=== PATIENT | female | born 1950 | race Caucasian/White ===

== ENCOUNTER 2020-02-28 15:38 | Observation (INO) ==
[2020-02-28 16:26] LABS: Basophils % 0.2 %; Eosinophils % 0.2 %; Hematocrit 36.4 % (35.3-44.9); Hemoglobin 12.3 g/dL (11.5-15.4); Immature Granulocytes % 0.5 % (0-4); Lymphocytes # 0.5 K/mcL (0.6-4.6); Lymphocytes % 12.7 %; Mean Corpuscular HGB Conc 33.8 g/dL (31.6-35.5); Mean Corpuscular Volume 94.8 fL (83.0-100.0); Mean Platelet Volume 9.5 fL (9.4-12.4); Monocytes # 0.2 K/mcL (0.0-1.3); Monocytes % 5.7 %; Neutrophils # 3.2 K/mcL (1.6-8.9); Platelet Count 234 K/mcL (140-400); Red Blood Count 3.84 M/mcL (3.82-4.97); Red Cell Distribution Width 11.7 % (11.5-14.5); Segmented Neutrophils % 80.7 %
[2020-02-28 16:43] LABS: Bilirubin,Urine Negative (Negative); Blood,Urine Negative (Negative); Clarity,Urine Cloudy (Clear); Color,Urine Yellow (Yellow); Glucose,Urine (UA) Normal (Normal); Ketones,Urine Negative (Negative); Leukocyte Esterase,Urine Negative (Negative); Nitrite,Urine Negative (Negative); PH,Urine 7.5 pH Units (5.0-8.0); Protein,Urine 30 mg/dL (Neg-Trace); Specific Gravity,Urine 1.019 (1.010-1.025); Urobilinogen,Urine Normal (Normal)
[2020-02-28 16:45] LABS: Bacteria,Urine Few per hpf (None-Few); Hyaline Casts,Urine None Seen per lpf (None-Few); RBC,Urine 0-3 per hpf (0-3); Squamous Epithelial Cell,Urine Few per lpf (None-Few); WBC,Urine 0-3 per hpf (0-3)
[2020-02-28] MEDS ORDERED: 0.9 % Sodium Chloride 500 ML IVC ONE ×2 (16:54→17:30)
[2020-02-28 16:57] LABS: Alanine Aminotransferase 21 Units/L (7-52); Albumin 4.4 g/dL (3.5-5.7); Albumin/Globulin Ratio 1.4 (1.1-2.2); Alkaline Phosphatase 95 Units/L (34-104); Aspartate Amino Transferase 26 Units/L (13-39); BUN/Creatinine Ratio 28 (6-26); Bilirubin,Direct 0.1 mg/dL (0.0-0.2); Bilirubin,Indirect 0.3 mg/dL (0.0-1.0); Bilirubin,Total 0.4 mg/dL (0.3-1.0); Blood Urea Nitrogen 17 mg/dL (8-23); Calcium 9.3 mg/dL (8.6-10.3); Carbon Dioxide 30 mEq/L (23-29); Chloride 88 mEq/L (98-107); Globulin 3.2 g/dL (2.4-3.5); Glucose 137 mg/dL (70-105); Osmolality,Calculated 266 (280-300); Potassium 4.4 mEq/L (3.5-5.1); Sodium 126 mEq/L (136-145); Total Protein 7.6 g/dL (6.4-8.9); Troponin I < 0.03 ng/mL (< 0.04); eGFR For African Americans > 60 (> 60); eGFR For Non-African Americans > 60 (> 60)
[2020-02-28] MEDS ORDERED: 0.9 % Sodium Chloride 1,000 ML ONE (17:13)
[2020-02-28] MEDS ORDERED: Naloxone 0.4 MG/ML INJ IVP PRN (20:26)
[2020-02-28] MEDS ORDERED: Ondansetron ODT 4 MG TAB.RAPDIS SL PRN (20:31)
[2020-02-28] MEDS ORDERED: Acetaminophen 325 MG TABLET PO PRN (20:35)
[2020-02-28] MEDS ORDERED: Albuterol 2.5 MG/3 ML NEBULIZER IH PRN (20:35)
[2020-02-28 22:57] LABS: BUN/Creatinine Ratio 29 (6-26); Blood Urea Nitrogen 15 mg/dL (8-23); Calcium 8.3 mg/dL (8.6-10.3); Carbon Dioxide 29 mEq/L (23-29); Chloride 93 mEq/L (98-107); Glucose 90 mg/dL (70-105); Osmolality,Calculated 264 (280-300); Potassium 4.2 mEq/L (3.5-5.1); Sodium 127 mEq/L (136-145); eGFR For African Americans > 60 (> 60); eGFR For Non-African Americans > 60 (> 60)
[2020-02-29 03:49] LABS: Basophils % 0.5 %; Eosinophils # 0.1 K/mcL (0.0-0.6); Eosinophils % 1.9 %; Hematocrit 31.1 % (35.3-44.9); Immature Granulocytes % 0.2 % (0-4); Lymphocytes # 1.2 K/mcL (0.6-4.6); Lymphocytes % 28.7 %; Mean Corpuscular HGB Conc 33.8 g/dL (31.6-35.5); Mean Corpuscular Volume 94.8 fL (83.0-100.0); Mean Platelet Volume 9.9 fL (9.4-12.4); Monocytes # 0.4 K/mcL (0.0-1.3); Neutrophils # 2.5 K/mcL (1.6-8.9); Platelet Count 214 K/mcL (140-400); Red Blood Count 3.28 M/mcL (3.82-4.97); Red Cell Distribution Width 11.7 % (11.5-14.5); Segmented Neutrophils % 58.7 %; White Blood Count 4.2 K/mcL (4.3-11.1)
[2020-02-29 03:55] LABS: Hemoglobin 10.5 g/dL (11.5-15.4)
[2020-02-29 04:02] LABS: BUN/Creatinine Ratio 27 (6-26); Blood Urea Nitrogen 13 mg/dL (8-23); Calcium 8.4 mg/dL (8.6-10.3); Carbon Dioxide 27 mEq/L (23-29); Chloride 95 mEq/L (98-107); Glucose 82 mg/dL (70-105); Magnesium 1.5 mg/dL (1.6-2.6); Osmolality,Calculated 263 (280-300); Phosphorous 3.2 mg/dL (2.7-4.5); Potassium 3.9 mEq/L (3.5-5.1); Sodium 127 mEq/L (136-145); eGFR For African Americans > 60 (> 60); eGFR For Non-African Americans > 60 (> 60)
[2020-02-29] MEDS: *HR* Heparin 5,000 UNIT/ML VIAL SQ SCH ×2 (05:11→16:15)
[2020-02-29] MEDS: amLODIPine 5 MG TABLET PO SCH (08:58)
[2020-02-29] MEDS: PHENobarbitaL 32.4 MG TABLET PO SCH ×3 (08:58→20:03)
[2020-02-29] MEDS: carBAMazepine 200 MG TABLET PO SCH ×3 (08:59→20:03)
[2020-02-29] MEDS ORDERED: 0.9 % Sodium Chloride 1,000 ML IVC SCH (09:00)
[2020-02-29] MEDS: lisinopriL 20 MG TABLET PO SCH (09:10)
[2020-03-01] MEDS: *HR* Heparin 5,000 UNIT/ML VIAL SQ SCH ×2 (05:34→17:39)
[2020-03-01] MEDS: PHENobarbitaL 32.4 MG TABLET PO SCH ×3 (07:48→20:34)
[2020-03-01] MEDS: lisinopriL 20 MG TABLET PO SCH (07:48)
[2020-03-01] MEDS: amLODIPine 5 MG TABLET PO SCH (07:48)
[2020-03-01] MEDS: carBAMazepine 200 MG TABLET PO SCH ×3 (07:49→20:34)
[2020-03-02 02:50] LABS: Hematocrit 28.2 % (35.3-44.9); Hemoglobin 9.5 g/dL (11.5-15.4); Mean Corpuscular HGB Conc 33.7 g/dL (31.6-35.5); Mean Corpuscular Hemoglobin 31.8 pg (28.0-33.3); Mean Corpuscular Volume 94.3 fL (83.0-100.0); Mean Platelet Volume 11.8 fL (9.4-12.4); Platelet Count 129 K/mcL (140-400); Red Blood Count 2.99 M/mcL (3.82-4.97); Red Cell Distribution Width 11.9 % (11.5-14.5); White Blood Count 4.5 K/mcL (4.3-11.1)
[2020-03-02 03:14] LABS: BUN/Creatinine Ratio 34 (6-26); Blood Urea Nitrogen 24 mg/dL (8-23); Carbon Dioxide 23 mEq/L (23-29); Chloride 100 mEq/L (98-107); Glucose 94 mg/dL (70-105); Osmolality,Calculated 272 (280-300); Potassium 4.6 mEq/L (3.5-5.1); Sodium 129 mEq/L (136-145); eGFR For African Americans > 60 (> 60); eGFR For Non-African Americans > 60 (> 60)
[2020-03-02] MEDS: *HR* Heparin 5,000 UNIT/ML VIAL SQ SCH ×2 (05:23→16:43)
[2020-03-02] MEDS: Magnesium Oxide 400 MG TABLET PO SCH ×2 (08:20→20:52)
[2020-03-02] MEDS: carBAMazepine 200 MG TABLET PO SCH ×3 (08:20→20:53)
[2020-03-02] MEDS: amLODIPine 5 MG TABLET PO SCH (08:20)
[2020-03-02] MEDS: PHENobarbitaL 32.4 MG TABLET PO SCH ×3 (08:20→20:52)
[2020-03-02] MEDS: lisinopriL 20 MG TABLET PO SCH (08:20)
[2020-03-02] MEDS ORDERED: Aminoglycoside Consult 1 EACH MC ONE (13:14)
[2020-03-02] MEDS: Amoxicillin 500 MG CAPSULE PO SCH (20:52)
[2020-03-03] MEDS: amLODIPine 5 MG TABLET PO SCH (06:04)
[2020-03-03] MEDS: *HR* Heparin 5,000 UNIT/ML VIAL SQ SCH (06:04)
[2020-03-03] MEDS: carBAMazepine 200 MG TABLET PO SCH (08:03)
[2020-03-03] MEDS: PHENobarbitaL 32.4 MG TABLET PO SCH (08:04)
[2020-03-03] MEDS: Amoxicillin 500 MG CAPSULE PO SCH (08:04)
[2020-03-03] MEDS: Magnesium Oxide 400 MG TABLET PO SCH (08:04)
[2020-03-03] MEDS: lisinopriL 20 MG TABLET PO SCH (08:04)
[2020-03-03 09:57] LABS: Hematocrit 33.3 % (35.3-44.9); Hemoglobin 11.2 g/dL (11.5-15.4); Mean Corpuscular HGB Conc 33.6 g/dL (31.6-35.5); Mean Corpuscular Hemoglobin 32.5 pg (28.0-33.3); Mean Corpuscular Volume 96.5 fL (83.0-100.0); Mean Platelet Volume 9.7 fL (9.4-12.4); Platelet Count 181 K/mcL (140-400); Red Blood Count 3.45 M/mcL (3.82-4.97); Red Cell Distribution Width 11.9 % (11.5-14.5)
[2020-03-03 10:13] LABS: BUN/Creatinine Ratio 27 (6-26); Blood Urea Nitrogen 16 mg/dL (8-23); Calcium 8.5 mg/dL (8.6-10.3); Carbon Dioxide 26 mEq/L (23-29); Chloride 98 mEq/L (98-107); Glucose 112 mg/dL (70-105); Magnesium 1.3 mg/dL (1.6-2.6); Osmolality,Calculated 274 (280-300); Potassium 4.1 mEq/L (3.5-5.1); Sodium 131 mEq/L (136-145); eGFR For African Americans > 60 (> 60); eGFR For Non-African Americans > 60 (> 60)
[2020-03-03 10:51] VITALS: BP 133/58
== END 2020-03-03 13:15 | disposition other institution (70) ==
LOC: EMEROOARM 15:38 → 3BNU 15:38 → SUATTDRO 18:56 → 3BNU 20:30
PROVIDERS: ADMIT Internal Medicine; ATTEND Internal Medicine

== ENCOUNTER 2020-06-09 01:59 | Observation (INO) ==
[2020-06-09 03:33] LABS: Bilirubin,Urine Negative (Negative); Blood,Urine Negative (Negative); Clarity,Urine Clear (Clear); Color,Urine Colorless (Yellow); Glucose,Urine (UA) Normal (Normal); Ketones,Urine Negative (Negative); Leukocyte Esterase,Urine Negative (Negative); Nitrite,Urine Negative (Negative); Protein,Urine Trace mg/dL (Neg-Trace); Urobilinogen,Urine Normal (Normal)
[2020-06-09 04:09] LABS: Basophils % 0.6 %; Eosinophils # 0.1 K/mcL (0.0-0.6); Eosinophils % 1.8 %; Hematocrit 33.8 % (35.3-44.9); Hemoglobin 11.2 g/dL (11.5-15.4); Immature Granulocytes % 0.2 % (0-4); Lymphocytes # 0.8 K/mcL (0.6-4.6); Lymphocytes % 15.6 %; Mean Corpuscular HGB Conc 33.1 g/dL (31.6-35.5); Mean Corpuscular Hemoglobin 31.3 pg (28.0-33.3); Mean Corpuscular Volume 94.4 fL (83.0-100.0); Mean Platelet Volume 9.5 fL (9.4-12.4); Monocytes # 0.4 K/mcL (0.0-1.3); Monocytes % 8.3 %; Neutrophils # 3.7 K/mcL (1.6-8.9); Platelet Count 195 K/mcL (140-400); Red Blood Count 3.58 M/mcL (3.82-4.97); Red Cell Distribution Width 11.7 % (11.5-14.5); Segmented Neutrophils % 73.5 %; White Blood Count 5.1 K/mcL (4.3-11.1)
[2020-06-09 04:31] LABS: BUN/Creatinine Ratio 41 (6-26); Blood Urea Nitrogen 24 mg/dL (8-23); Calcium 8.5 mg/dL (8.6-10.3); Carbon Dioxide 24 mEq/L (23-29); Chloride 95 mEq/L (98-107); Glucose 96 mg/dL (70-105); Osmolality,Calculated 270 (280-300); Potassium 4.3 mEq/L (3.5-5.1); Sodium 128 mEq/L (136-145); eGFR For African Americans > 60 (> 60); eGFR For Non-African Americans > 60 (> 60)
[2020-06-09 04:32] LABS: Albumin 3.9 g/dL (3.5-5.7); Albumin/Globulin Ratio 1.3 (1.1-2.2); Bilirubin,Indirect 0.3 mg/dL (0.0-1.0); Bilirubin,Total 0.3 mg/dL (0.3-1.0); Total Protein 6.9 g/dL (6.4-8.9)
[2020-06-09] MEDS ORDERED: 0.9 % Sodium Chloride 1,000 ML IVC ONE (05:20)
[2020-06-09] MEDS ORDERED: Acetaminophen 325 MG TABLET PO PRN (09:49)
[2020-06-09] MEDS ORDERED: Albuterol 2.5 MG/3 ML NEBULIZER IH PRN (09:52)
[2020-06-09] MEDS: amLODIPine 5 MG TABLET PO SCH (11:09)
[2020-06-09] MEDS ORDERED: carBAMazepine 200 MG TABLET PO SCH (11:32)
[2020-06-09] MEDS: carBAMazepine 200 MG TABLET PO SCH ×3 (13:00→20:55)
[2020-06-09] MEDS: PHENobarbitaL 32.4 MG TABLET PO SCH ×3 (13:10→20:55)
[2020-06-09] MEDS ORDERED: lisinopriL 20 MG TABLET PO SCH (14:15)
[2020-06-09] MEDS: Metoprolol 100 MG TABLET PO SCH (20:56)
[2020-06-10 05:35] LABS: Basophils % 0.8 %; Eosinophils # 0.2 K/mcL (0.0-0.6); Hematocrit 34.2 % (35.3-44.9); Hemoglobin 10.8 g/dL (11.5-15.4); Immature Granulocytes % 0.5 % (0-4); Lymphocytes % 26.2 %; Mean Corpuscular HGB Conc 31.6 g/dL (31.6-35.5); Mean Corpuscular Hemoglobin 31.3 pg (28.0-33.3); Mean Corpuscular Volume 99.1 fL (83.0-100.0); Mean Platelet Volume 9.5 fL (9.4-12.4); Monocytes # 0.5 K/mcL (0.0-1.3); Monocytes % 11.8 %; Neutrophils # 2.3 K/mcL (1.6-8.9); Platelet Count 179 K/mcL (140-400); Red Blood Count 3.45 M/mcL (3.82-4.97); Red Cell Distribution Width 11.8 % (11.5-14.5); Segmented Neutrophils % 56.7 %
[2020-06-10 05:57] LABS: BUN/Creatinine Ratio 37 (6-26); Blood Urea Nitrogen 19 mg/dL (8-23); Calcium 8.5 mg/dL (8.6-10.3); Carbon Dioxide 24 mEq/L (23-29); Chloride 100 mEq/L (98-107); Glucose 88 mg/dL (70-105); Magnesium 1.6 mg/dL (1.6-2.6); Osmolality,Calculated 276 (280-300); Potassium 4.1 mEq/L (3.5-5.1); Sodium 132 mEq/L (136-145); eGFR For African Americans > 60 (> 60); eGFR For Non-African Americans > 60 (> 60)
[2020-06-10] MEDS ORDERED: NON-FORMULARY MEDICATION 1 EACH EACH (Calcium Carbonate/Vitamin D3 [Calcium 600 + Vit D Ta PO SCH (08:00)
[2020-06-10] MEDS: polyethylene glycoL 3350 17 GM POWD.PACK PO SCH (08:30)
[2020-06-10] MEDS: carBAMazepine 200 MG TABLET PO SCH ×3 (08:30→19:39)
[2020-06-10] MEDS: amLODIPine 5 MG TABLET PO SCH (08:31)
[2020-06-10] MEDS: Cholecalciferol (D-3) 1,000 UNIT (25MCG) TABLET PO SCH (08:31)
[2020-06-10] MEDS: Magnesium Oxide 400 MG TABLET PO SCH (08:31)
[2020-06-10] MEDS: Metoprolol 100 MG TABLET PO SCH ×2 (08:31→19:39)
[2020-06-10] MEDS: PHENobarbitaL 32.4 MG TABLET PO SCH ×3 (08:31→19:39)
[2020-06-11 01:08] LABS: Basophils % 0.6 %; Eosinophils # 0.2 K/mcL (0.0-0.6); Eosinophils % 3.3 %; Hematocrit 31.5 % (35.3-44.9); Hemoglobin 10.3 g/dL (11.5-15.4); Immature Granulocytes % 0.4 % (0-4); Lymphocytes # 1.2 K/mcL (0.6-4.6); Lymphocytes % 25.3 %; Mean Corpuscular HGB Conc 32.7 g/dL (31.6-35.5); Mean Corpuscular Hemoglobin 31.4 pg (28.0-33.3); Mean Platelet Volume 9.5 fL (9.4-12.4); Monocytes # 0.6 K/mcL (0.0-1.3); Monocytes % 11.5 %; Neutrophils # 2.9 K/mcL (1.6-8.9); Platelet Count 191 K/mcL (140-400); Red Blood Count 3.28 M/mcL (3.82-4.97); Red Cell Distribution Width 11.8 % (11.5-14.5); Segmented Neutrophils % 58.9 %; White Blood Count 4.9 K/mcL (4.3-11.1)
[2020-06-11 01:19] LABS: BUN/Creatinine Ratio 43 (6-26); Blood Urea Nitrogen 34 mg/dL (8-23); Carbon Dioxide 25 mEq/L (23-29); Chloride 100 mEq/L (98-107); Glucose 98 mg/dL (70-105); Magnesium 1.6 mg/dL (1.6-2.6); Osmolality,Calculated 282 (280-300); Potassium 4.6 mEq/L (3.5-5.1); Sodium 132 mEq/L (136-145); eGFR For African Americans > 60 (> 60); eGFR For Non-African Americans > 60 (> 60)
[2020-06-11] MEDS: Magnesium Oxide 400 MG TABLET PO SCH (08:47)
[2020-06-11] MEDS: Cholecalciferol (D-3) 1,000 UNIT (25MCG) TABLET PO SCH (08:47)
[2020-06-11] MEDS: Metoprolol 100 MG TABLET PO SCH (08:48)
[2020-06-11] MEDS: amLODIPine 5 MG TABLET PO SCH (08:48)
[2020-06-11] MEDS: polyethylene glycoL 3350 17 GM POWD.PACK PO SCH (08:48)
[2020-06-11] MEDS: PHENobarbitaL 32.4 MG TABLET PO SCH (08:48)
[2020-06-11] MEDS: carBAMazepine 200 MG TABLET PO SCH (08:48)
[2020-06-11 09:46] VITALS: BP 169/65
== END 2020-06-11 10:15 | disposition home or self-care (01) ==
LOC: 2ANU 01:59 → EMEROOARM 01:59 → SUATTDRO 06:42 → 2ANU 09:36
PROVIDERS: ADMIT Family Medicine; ATTEND Internal Medicine

== ENCOUNTER 2022-03-07 09:32 | Observation (INO) ==
[2022-03-07 11:19] LABS: Basophils % 0.4 %; Eosinophils # 0.1 K/mcL (0.0-0.6); Eosinophils % 1.1 %; Hematocrit 34.7 % (35.3-44.9); Hemoglobin 11.6 g/dL (11.5-15.4); Immature Granulocytes % 0.4 % (0-4); Lymphocytes # 0.7 K/mcL (0.6-4.6); Lymphocytes % 11.9 %; Mean Corpuscular HGB Conc 33.4 g/dL (31.6-35.5); Mean Corpuscular Hemoglobin 31.4 pg (28.0-33.3); Mean Corpuscular Volume 93.8 fL (83.0-100.0); Mean Platelet Volume 9.6 fL (9.4-12.4); Monocytes # 0.4 K/mcL (0.0-1.3); Monocytes % 7.1 %; Neutrophils # 4.5 K/mcL (1.6-8.9); Platelet Count 210 K/mcL (140-400); Red Cell Distribution Width 12.3 % (11.5-14.5); Segmented Neutrophils % 79.1 %; White Blood Count 5.6 K/mcL (4.3-11.1)
[2022-03-07 11:26] LABS: Bilirubin,Urine Negative (Negative); Blood,Urine Negative (Negative); Clarity,Urine Clear (Clear); Color,Urine Yellow (Yellow); Glucose,Urine (UA) Normal (Normal); Ketones,Urine Negative (Negative); Leukocyte Esterase,Urine Negative (Negative); Nitrite,Urine Negative (Negative); PH,Urine 6.5 pH Units (5.0-8.0); Protein,Urine Trace mg/dL (Neg-Trace); Specific Gravity,Urine 1.019 (1.010-1.025); Urobilinogen,Urine Normal (Normal)
[2022-03-07 11:39] LABS: Alanine Aminotransferase 18 Units/L (7-52); Albumin 3.7 g/dL (3.5-5.7); Albumin/Globulin Ratio 1.2 (1.1-2.2); Alkaline Phosphatase 89 Units/L (34-104); Aspartate Amino Transferase 21 Units/L (13-39); BUN/Creatinine Ratio 32 (6-26); Bilirubin,Direct 0.1 mg/dL (0.0-0.2); Bilirubin,Indirect 0.2 mg/dL (0.0-1.0); Bilirubin,Total 0.3 mg/dL (0.3-1.0); Blood Urea Nitrogen 19 mg/dL (8-23); Calcium 8.7 mg/dL (8.6-10.3); Carbamazepine (Tegretol) 17 mcg/mL (4-12); Carbon Dioxide 29 mEq/L (23-29); Chloride 94 mEq/L (98-107); Ethanol < 10 mg/dL (Less than 10); Glucose 102 mg/dL (70-105); Osmolality,Calculated 270 (280-300); Potassium 4.2 mEq/L (3.5-5.1); Sodium 129 mEq/L (136-145); Total Protein 6.7 g/dL (6.4-8.9); Troponin I < 0.03 ng/mL (< 0.04); eGFR For African Americans > 60 (> 60); eGFR For Non-African Americans > 60 (> 60)
[2022-03-07 11:45] LABS: Amphetamine Screen,Urine Negative ng/mL (Cutoff=1000); Barbiturate Screen,Urine Positive ng/mL (Cutoff=200); Benzodiazepines Screen,Urine Negative ng/mL (Cutoff=200); Cannabinoid Screen,Urine Negative ng/mL (Cutoff = 50); Cocaine Screen,Urine Negative ng/mL (Cutoff= 300); Opiate Screen,Urine Negative ng/mL (Cutoff=300); Phencyclidine Screen,Urine Negative ng/mL (Cutoff=25)
[2022-03-07] MEDS ORDERED: Azithromycin 500 MG in D5% in Water 250 ML IVPB ONE (12:54)
[2022-03-07] MEDS: cefTRIAXone 1,000 MG in 0.9 % Sodium Chloride Mini Bag 100 ML IVPB STA ×2 (13:18→14:38)
[2022-03-07] MEDS ORDERED: *HR* Enoxaparin 40 MG/0.4 ML SYRINGE SQ ONE (14:15)
[2022-03-07] MEDS: Ampicillin/Sulbactam 1,500 MG in 0.9 % Sodium Chloride Mini Bag 100 ML IVPB SCH (18:11)
[2022-03-08] MEDS: Ampicillin/Sulbactam 1,500 MG in 0.9 % Sodium Chloride Mini Bag 100 ML IVPB SCH ×4 (00:53→17:54)
[2022-03-08] MEDS: *HR* Enoxaparin 40 MG/0.4 ML SYRINGE SQ SCH (05:41)
[2022-03-08] MEDS: Azithromycin 500 MG in 0.9 % Sodium Chloride 250 ML IVPB SCH (08:44)
[2022-03-08 09:10] LABS: Basophils % 0.8 %; Eosinophils # 0.1 K/mcL (0.0-0.6); Eosinophils % 3.7 %; Hematocrit 34.7 % (35.3-44.9); Hemoglobin 11.6 g/dL (11.5-15.4); Immature Granulocytes % 0.3 % (0-4); Lymphocytes # 0.7 K/mcL (0.6-4.6); Lymphocytes % 19.2 %; Mean Corpuscular HGB Conc 33.4 g/dL (31.6-35.5); Mean Corpuscular Hemoglobin 31.2 pg (28.0-33.3); Mean Corpuscular Volume 93.3 fL (83.0-100.0); Monocytes # 0.5 K/mcL (0.0-1.3); Monocytes % 13.6 %; Neutrophils # 2.2 K/mcL (1.6-8.9); Platelet Count 186 K/mcL (140-400); Red Blood Count 3.72 M/mcL (3.82-4.97); Red Cell Distribution Width 12.1 % (11.5-14.5); Segmented Neutrophils % 62.4 %; White Blood Count 3.5 K/mcL (4.3-11.1)
[2022-03-08 09:30] LABS: BUN/Creatinine Ratio 20 (6-26); Blood Urea Nitrogen 10 mg/dL (8-23); Calcium 8.6 mg/dL (8.6-10.3); Carbamazepine (Tegretol) 7 mcg/mL (4-12); Carbon Dioxide 31 mEq/L (23-29); Chloride 98 mEq/L (98-107); Glucose 89 mg/dL (70-105); Magnesium 1.5 mg/dL (1.6-2.6); Osmolality,Calculated 275 (280-300); Potassium 3.8 mEq/L (3.5-5.1); Sodium 133 mEq/L (136-145); eGFR For African Americans > 60 (> 60); eGFR For Non-African Americans > 60 (> 60)
[2022-03-08] MEDS: amLODIPine 5 MG TABLET PO SCH (13:03)
[2022-03-08] MEDS: carBAMazepine 200 MG TABLET PO SCH ×2 (17:54→20:16)
[2022-03-08] MEDS: PHENobarbitaL 32.4 MG TABLET PO SCH ×2 (17:54→20:16)
[2022-03-08] MEDS: Metoprolol 100 MG TABLET PO SCH (20:16)
[2022-03-09] MEDS: Ampicillin/Sulbactam 1,500 MG in 0.9 % Sodium Chloride Mini Bag 100 ML IVPB SCH ×3 (00:37→11:32)
[2022-03-09] MEDS: *HR* Enoxaparin 40 MG/0.4 ML SYRINGE SQ SCH (06:34)
[2022-03-09] MEDS: PHENobarbitaL 32.4 MG TABLET PO SCH (06:35)
[2022-03-09 07:14] VITALS: O2SAT 97
[2022-03-09 07:32] LABS: BUN/Creatinine Ratio 17 (6-26); Blood Urea Nitrogen 11 mg/dL (8-23); Calcium 8.7 mg/dL (8.6-10.3); Carbon Dioxide 29 mEq/L (23-29); Chloride 97 mEq/L (98-107); Glucose 88 mg/dL (70-105); Magnesium 1.8 mg/dL (1.6-2.6); Osmolality,Calculated 275 (280-300); Phosphorous 3.6 mg/dL (2.7-4.5); Potassium 4.1 mEq/L (3.5-5.1); Sodium 133 mEq/L (136-145); eGFR For African Americans > 60 (> 60); eGFR For Non-African Americans > 60 (> 60)
[2022-03-09] MEDS ORDERED: cloNIDine HCL 0.1 MG TABLET PO PRN (07:50)
[2022-03-09] MEDS ORDERED: Aspirin Enteric Coated 81 MG Tablet PO SCH (08:30)
[2022-03-09] MEDS ORDERED: lisinopriL 20 MG TABLET PO SCH (08:30)
[2022-03-09] MEDS: Azithromycin 500 MG in 0.9 % Sodium Chloride 250 ML IVPB SCH (09:30)
[2022-03-09] MEDS: amLODIPine 5 MG TABLET PO SCH (09:32)
[2022-03-09] MEDS: Metoprolol 100 MG TABLET PO SCH (09:32)
[2022-03-09] MEDS: carBAMazepine 200 MG TABLET PO SCH (09:35)
[2022-03-09 10:18] VITALS: BP 158/62; PULSE 56; TEMP 98.4
[2022-03-09 12:30] LABS: Influenza A PCR Negative (Negative); Influenza B PCR Negative (Negative); Resp. Syncytial Virus PCR Negative (Negative); SARS-CoV-2 by PCR (In House) Negative (Negative)
[2022-03-09] MEDS ORDERED: Loratadine 10 MG TABLET PO SCH (16:00)
[2022-03-10] MEDS ORDERED: Levothyroxine 25 MCG TABLET PO SCH (06:00)
[2022-03-10] MEDS ORDERED: Zinc Sulfate 220 MG CAPSULE PO SCH (07:00)
== END 2022-03-09 14:24 | disposition home or self-care (01) ==
LOC: 3ANU 09:32 → EMEROOARM 09:32 → SUATTDRO 13:10 → 3ANU 14:03
PROVIDERS: ADMIT Internal Medicine; ATTEND Internal Medicine